=== PATIENT | female | born 1955 | race Caucasian/White ===

== ENCOUNTER 2017-12-06 18:10 | Emergency (ER) | payer SELFPAY, OTHER | END 2017-12-06 21:38 | disposition left against medical advice (07) | LOC: E/R 21:38 | DX: Z53.21 Procedure and treatment not carried out due to patient leaving prior to being seen by health care provider (principal) ==

== ENCOUNTER 2018-05-07 21:44 | Inpatient (IN) | payer BC ==
[2018-05-08] MEDS ORDERED: ONDANSETRON 4 MG INJ IV
[2018-05-08] MEDS ORDERED: ACETAMINOPHEN 325 MG TAB PO
[2018-05-08] MEDS ORDERED: NITROGLYCERIN (SL) 0.4 MG TAB SL
[2018-05-08] MEDS ORDERED: ZOLPIDEM 5 MG TAB PO
[2018-05-08] MEDS: morphine 2 MG INJ IV (00:31)
[2018-05-08] MEDS: PANTOPRAZOLE (EC) 40 MG TAB PO (06:11)
[2018-05-08 10:08] LABS: TROPONIN-I < 0.012 ng/ml (0.000-0.120)
== END 2018-05-08 14:03 | disposition home or self-care (01) | DRG 313 ==
LOC: MS4 21:44
PROVIDERS: Internal Medicine
DX: R07.9 Chest pain, unspecified (principal); Z90.710 Acquired absence of both cervix and uterus; I10 Essential (primary) hypertension
CPT/HCPCS: 84484; 93005; 93306